=== PATIENT | female | born 1955 | race Caucasian/White ===

== ENCOUNTER 2024-10-17 08:45 | Emergency (ER) | payer MEDICARE, MEDICAID ==
[~2024-10-17] VITALS: Ht 165.1 cm; Wt 55.5 kg
--- NOTE | 2024-10-17 10:34 | Physician Documentation ---
History of Present Illness ~ Chief Complaint: Headache Stated Complaint: HIGH BLOOD PRESSURE Time Seen by MD: 09:04 Mode of Arrival: Ambulatory HPI 68-year-old female who presents to the emergency department with multiple complaints, patient states that she has a headache in addition she has a history of hypertension in his Ativan amlodipine, states that the amlodipine was in a different bottle in the facility she is staying at will not let her have her medications in addition to this she is requesting a refill of her albuterol inhaler. She states it has some palpitations she had last night however does not have any chest pain currently. Timing/Duration: days Severity: mild Quality: intermittent Location of Pain: generalized Onset/Recent Events: spontaneous onset History Of: no pertinent history Medication Reconciliation Allergies: Coded Allergies: acetaminophen (Unverified Allergy, Unknown, bad for kidneys, 10/17/24) erythromycin base (Unverified Allergy, Unknown, 10/17/24) ibuprofen (Unverified Allergy, Unknown, red in face, 10/17/24) peanut oil (Unverified Allergy, Unknown, 10/17/24) Physical Exam Vital Signs: Temperature: 97.4, Source: Temporal, Heart Rate: 59, Respiratory Rate: 18, BP: 124/71, Pulse Oximetry: 98, Weight: 55.450 Oxygen Flow Rate: 0 Progress Results/Orders Results/Orders Orders - NAYA ALONSO DO 15 Lead Ekg (10/17/24 ) Completed Orders - NAYA ALONSO DO Amlodipine Tablet (Norvasc Tablet) (10/17/24 10:35) Vital Signs 10/17/24 10/17/24 10/17/24 08:48 09:23 09:29 Temp 97.4 Pulse 66 59 Resp 18 18 B/P (MAP) 120/71 124/71 (88) Pulse Ox 98 98 O2 Flow Rate 0 0 Re-Evaluation Re-Evaluation : Progress 10:50 a.m. informed by the nurse the patient has refused her EKG, she does not want any further testing would like to be discharged with her prescriptions. She no longer has palpitations or chest pain, I urged the patient to perform these tests however she refuses Heart Score: Heart Score Response (Comments) Value History Slightly Suspicious 0 EKG N/A 0 Age >65 2 Risk Factors 1 or 2 risk factors 1 Troponin N/A 0 Total 3 Medical Decision Making Findings Patient refused further testing to help identify potential causes for palpitations in her shortness of breath she would like to be discharged with a home medications Differential Dx:Considerations: Include: FRASER-Migraine Additional Comment Principal diagnosis for headache includes intracranial hemorrhage, brain tumor, migraine headache, other headache etiologies, dehydration among others Differential diagnosis for palpitations include acute myocardial infarction, electrolyte abnormalities, palpitations, PVCs, PACs among others. Departure Disposition: HOME / SELF CARE / HOMELESS Impression: Primary Impression: Headache Additional Impression: Asthma Additional Impression Text You were offered further testing in the ER today but refused, your medications were refilled, if you have recurrent palpitations or any concerns please return to the ER. Discharge Instructions: Headache Additional Instructions: You have a history of hypertension and asthma, your medications were refilled, please use them as directed and follow up with your regular doctor Referrals: NO PRIMARY CARE PROVIDER (PCP) Prescriptions albuterol inhaler (Pro-Air Inhaler) 8.5 Gm Inhaler 2 PUFFS INH Q4HPRN PRN for wheezing for 30 Days, #18 GM Prov: NAYA ALONSO DO 10/17/24 Amlodipine Besylate (Amlodipine Besylate) 5 Mg Tablet 1 TAB PO DAILY for 30 Days, #30 TAB 0 Refills Prov: NAYA ALONSO DO 10/17/24 Education Educated: Patient Educated regarding: diagnosis, treatment Signature Scribe Signature: None Attestation: Dictated by myself NAYA ALONSO DO Oct 17, 2024 10:34
[2024-10-17] MEDS: amLODIPine 5mg tablet PO ONE (10:52)
[2024-10-17] MEDS ORDERED: ALBU8HFA INH (10:56)
[2024-10-17] MEDS ORDERED: AMLO5TAB16 PO (10:56)
[2024-10-17 11:09] VITALS: BP 148/79; PULSE 79; RESP 18; TEMP 97.4; O2SAT 97
== END 2024-10-17 11:10 | disposition home or self-care (01) ==
LOC: ER 08:46
DX: R51.9 Headache, unspecified (principal); J45.909 Unspecified asthma, uncomplicated; I10 Essential (primary) hypertension; Z88.6 Allergy status to analgesic agent; Z88.1 Allergy status to other antibiotic agents
CPT/HCPCS: 99284